=== PATIENT | female | born 1995 | race Caucasian/White ===

== ENCOUNTER 2020-12-30 02:58 | Inpatient (IN) | payer OTHER ==
[2020-12-30] MEDS ORDERED: BUTORPHANOL 1 MG/ML 1 ML VIAL IV PRN (04:30)
[2020-12-30] MEDS ORDERED: LIDOCAINE 0.5% (PF) 5 MG/ML (50 ML SDV) SQ PRN (04:34)
[2020-12-30] MEDS ORDERED: CARBOPROST TROMETHAMINE 250 MCG/ML 1 ML AMP IM PRN (04:34)
[2020-12-30] MEDS ORDERED: OXYTOCIN 10 UNIT/ML 1 ML VIAL IM PRN (04:34)
[2020-12-30] MEDS ORDERED: METHYLERGONOVINE 0.2 MG/ML 1 ML AMP IM PRN (04:34)
[2020-12-30] MEDS ORDERED: TERBUTALINE 1 MG/ML VIAL SQ PRN (04:34)
[2020-12-30] MEDS: LACTATED RINGERS 1,000 ML IV SCH ×2 (05:05→13:00)
[2020-12-30 05:19] LABS: Basophils % (A) 0 %; Eosinophils # (A) 0.2 k/uL (0-0.7); Eosinophils % (A) 3 %; HCT 39.5 % (34.0-46.0); HGB 12.9 gm/dL (11.4-16.0); Lymphocytes # (A) 1.5 k/uL (1.0-4.8); Lymphocytes % (A) 16 %; MCHC 32.6 g/dL (31.0-37.0); Mean Platelet Volume 7.4; Monocytes # (A) 0.3 k/uL (0-1.0); Monocytes % (A) 4 %; Neutrophils % (A) 77 %; Platelet Count 259 k/uL (150-450); RBC 4.44 m/uL (3.80-5.40); RDW 13.1 % (11.5-15.5); WBC 9.2 k/uL (3.8-10.6)
[2020-12-30] MEDS ORDERED: diphenhydrAMINE 50 MG/ML 1 ML VIAL IVP PRN ×2 (13:35)
[2020-12-30] MEDS ORDERED: diphenhydrAMINE 25 MG CAP PO PRN (13:35)
[2020-12-30] MEDS ORDERED: HYDROCORTISONE 2.5% RECTAL CREAM 30 GM TUBE RECTAL PRN (13:35)
[2020-12-30] MEDS ORDERED: LANOLIN CREAM 5 GM TUBE TOPICAL PRN (13:35)
[2020-12-30] MEDS ORDERED: diphenhydrAMINE 50 MG CAP PO PRN (13:35)
[2020-12-30] MEDS ORDERED: ACETAMINOPHEN TAB 325 MG TAB PO PRN (13:35)
[2020-12-30] MEDS ORDERED: SIMETHICONE 80 MG CHEWABLE PO PRN (13:35)
[2020-12-30] MEDS ORDERED: BENZOCAINE/MENTHOL SPRAY 1 GM/SPRAY AEROSOL TOPICAL PRN (13:35)
[2020-12-30] MEDS ORDERED: ZOLPIDEM 5 MG TAB PO PRN (13:35)
--- NOTE | 2020-12-30 13:38 | P.PROBDLV ---
Vaginal Delivery Note - . Vaginal Delivery Note: This is a 25-year-old 1 para 0 at 39-2/7 weeks that presented to labor and delivery with complaints of regular painful contractions early this a.m. Patient had been receiving routine care which has been essentially uncomplicated. Patient was noted to be 4-5 cm upon admission. Patient was admitted to labor and delivery and minimal progress was made approximately 8 AM 3 hours after admission patient was noted to have made 1 cm of change, therefore amniotomy was performed and clear fluid was obtained. Patient progressed through labor eventually becoming complete and began pushing. Patient underwent a normal spontaneous vaginal delivery of a viable female at 1314, weight of 6 lbs. 15 oz. and Apgars of 9 and 9 at one and 5 minutes respectively. Prior to delivery a clitoral laceration was noted therefore a midline episiotomy was preformed after instillation of lidocaine. After two-minute delayed the umbilical cord was doubly clamped and cut and the was handed to the maternal abdomen. The placenta was then delivered spontaneously intact with a three-vessel cord noted. On inspection the patient's vaginal vault the midline laceration was noted to be second-degree in nature. Uterus was noted to be boggy and Methergine was given. Repair of the midline episiotomy was completed with 3-0 Rapide in the usual fashion. The uterus was noted to be firm and below the umbilicus. Estimated blood loss 400 mL. Patient and tolerated delivery well and are resting comfortably. All counts were noted be correct 2 at the end of the delivery.
[2020-12-30] MEDS ORDERED: OXYTOCIN 30 UNITS/500 ML NS 30 UNIT in SALINE 1 500ML.BAG IV SCH (13:45)
[2020-12-30] MEDS: IBUPROFEN 600 MG TAB PO SCH ×3 (13:47→21:38)
--- NOTE | 2020-12-30 17:37 | P.HPOB ---
History of Present Illness H&P Date: 12/30/20 Chief Complaint: IUP @ 39 weeks, active labor This is a 25 yo at 39 weeks that presents to labor and delivery with complaints of regular painful contractions. She states she has been having ant over the last few days and they became regular and painful last dereck branden. she denies LOF/VB, she does note good FM Patient has been receiving routine care with myself which is been essentially uncomplicated. Review of Systems Constitutional: Denies chills, Denies fatigue, Denies fever Ears, nose, mouth and throat: Denies headache Cardiovascular: Reports leg edema Respiratory: Denies dyspnea Gastrointestinal: Denies constipation, Denies diarrhea, Denies nausea, Denies vomiting Genitourinary: Reports Past Medical History Past Medical History: No Reported History History of Any Multi-Drug Resistant Organisms: None Reported Additional Past Surgical History / Comment(s): [place] teeth Past Anesthesia/Blood Transfusion Reactions: No Reported Reaction Past Psychological History: No Psychological Hx Reported Smoking Status: Never smoker Past Drug Use History: None Reported - Past Family History Father Family Medical History: Myocardial Infarction ([place]) Medications and Allergies Home Medications Medication Instructions Recorded Confirmed Type Aspirin [Children's Aspirin] 81 mg PO AC-BID 12/30/20 12/30/20 History Pnv No.95/Ferrous Fum/Folic AC 1 each PO DAILY 12/30/20 12/30/20 History [ Multivitamin Tablet] Allergies Allergy/AdvReac Type Severity Reaction Status Date / Time No Known Allergies Allergy Verified 12/30/20 03:08 Exam Osteopathic Statement: *. No significant issues noted on an osteopathic structural exam other than those noted in the History and Physical/Consult. Vital Signs Temp Pulse Resp BP Pulse Ox 12/30/20 04:40 97.8 F 72 16 125/74 100 12/30/20 04:30 97.8 F 72 16 125/74 100 Intake and Output 12/29/20 12/30/20 12/30/20 22:59 06:59 14:59 Other: # Voids 1 Weight 60.781 kg Targeted physical exam is performed and state in general this a well-nourished well-developed female in no acute distress, breathing is nonlabored, heart is regular rhythm, abdomen is gravid and appropriate for gestational age on cervical exam she is 5/100/-1 station amniotomy is performed and clear fluid was obtained. Category 1 heart tones are appreciated and contractions are irregular. Results Result Diagrams: 12/30/20 05:15 Assessment and Plan (1) Term Current Visit: Yes Status: Acute Code(s): Z34.90 - ENCNTR FOR SUPRVSN OF NORMAL , UNSP, UNSP TRIMESTER SNOMED Code(s): 04842304 (2) Active labor Current Visit: Yes Status: Acute Code(s): FTQ2043 - SNOMED Code(s): 889382645 Plan: 25-year-old at 39 weeks that presents with complaints of regular painful contractions. Patient is admitted options for analgesia are discussed including Stadol and epidural she declines both. Augmentation with Pitocin is discussed if necessary. Patient is agreeable to plan.
[2020-12-30 20:04] VITALS: RESP 16
[2020-12-30] MEDS: SENNOSIDES-DOCUSATE SODIUM 1 EACH TAB PO SCH (21:44)
[2020-12-31] MEDS: IBUPROFEN 600 MG TAB PO SCH ×4 (03:41→20:01)
[2020-12-31 06:37] LABS: Basophils % (A) 0 %; Eosinophils # (A) 0.1 k/uL (0-0.7); Eosinophils % (A) 1 %; HCT 23.7 % (34.0-46.0); Lymphocytes # (A) 1.3 k/uL (1.0-4.8); Lymphocytes % (A) 13 %; MCHC 34.9 g/dL (31.0-37.0); MCV 88.9 fL (80.0-100.0); Mean Platelet Volume 7.5; Monocytes # (A) 0.4 k/uL (0-1.0); Monocytes % (A) 4 %; Neutrophils # (A) 8.3 k/uL (1.3-7.7); Neutrophils % (A) 81 %; Platelet Count 202 k/uL (150-450); RBC 2.66 m/uL (3.80-5.40); RDW 12.5 % (11.5-15.5); WBC 10.2 k/uL (3.8-10.6)
[2020-12-31 06:42] LABS: HGB 8.3 gm/dL (11.4-16.0)
[2020-12-31] MEDS: SENNOSIDES-DOCUSATE SODIUM 1 EACH TAB PO SCH ×2 (08:12→20:02)
--- NOTE | 2020-12-31 08:42 | P.DS ---
Providers Date of admission: 12/30/20 04:37 Expected date of discharge: 12/31/20 Attending physician: Lizbeth Stanley Primary care physician: Stated None - Discharge Diagnosis(es) (1) Term Current Visit: Yes Status: Acute (2) Active labor Current Visit: Yes Status: Acute (3) Status post vaginal delivery Current Visit: Yes Status: Acute (4) Obstetric vaginal laceration with second degree perineal laceration Current Visit: Yes Status: Acute Hospital Course: This is a 25-year-old 1 now para 1 status post normal spontaneous vaginal delivery. Patient was admitted in active labor on 12/30 with regular strong contractions. Patient was noted to be 39-2/7 weeks at that time. Patient was admitted minimal change was made initially therefore amniotomy was performed and clear fluid was obtained. Patient progressed through labor eventually becoming complete and return had a normal spontaneous vaginal delivery of a viable female infant at 1314, weight of 6 lbs. 15 oz. and Apgars of 9 and 9 at one and 5 minutes respectfully. Patient's course has been uneventful. On this day #1 she is ambulating and voiding without difficulty. She is tolerating a regular diet without nausea or vomiting. She states her pain is well-controlled. She would like discharge home at 24 hours if possible. Patient Condition at Discharge: Good Plan - Discharge Summary New Discharge Prescriptions: No Action Pnv No.95/Ferrous Fum/Folic AC [ Multivitamin Tablet] 1 each PO DAILY Aspirin [Children's Aspirin] 81 mg PO AC-BID Discharge Medication List Aspirin [Children's Aspirin] 81 mg PO AC-BID 12/30/20 [History] Pnv No.95/Ferrous Fum/Folic AC [ Multivitamin Tablet] 1 each PO DAILY 12/30/20 [History] Follow up Appointment(s)/Referral(s): Lizbeth Stanley DO [Doctor of Osteopathic Medicine] - 4 Weeks Patient Instructions/Handouts: Vaginal Delivery (DC), Vaginal Delivery (GEN) Discharge Disposition: HOME SELF-CARE
[2021-01-01] MEDS: IBUPROFEN 600 MG TAB PO SCH ×2 (04:20→10:58)
--- NOTE | 2021-01-01 09:29 | P.PNOBGVD ---
Subjective - Subjective Principal diagnosis: day #2 status post normal spontaneous vaginal delivery Interval history: Patient is doing well . She is a billing and voiding without difficulty. Infant did stay an extra day secondary to elevated bilirubin. Awaiting rebound lab on at noon. Patient reports: Reports appetite normal, Reports voiding normally, Reports pain well controlled, Reports ambulating normally : doing well, nursing well Objective - Latest Vital Signs Latest vital signs: Vital Signs Temp Pulse Resp BP Pulse Ox 01/01/21 04:00 97.7 F 91 16 118/70 99 12/31/20 20:00 97.7 F 76 16 122/40 98 12/31/20 16:00 98.8 F 80 16 121/62 Intake and Output 12/31/20 01/01/21 01/01/21 22:59 06:59 14:59 Other: # Voids 2 2 - Exam Extremities: Present: normal, edema Abdomen: Present: normal appearance Uterus: Present: normal, firm Assessment and Plan (1) Term Current Visit: Yes Status: Acute Code(s): Z34.90 - ENCNTR FOR SUPRVSN OF NORMAL , UNSP, UNSP TRIMESTER SNOMED Code(s): 54095215 (2) Active labor Current Visit: Yes Status: Acute Code(s): HIG0559 - SNOMED Code(s): 890932129 (3) Status post vaginal delivery Current Visit: Yes Status: Acute Code(s): YCE2238 - SNOMED Code(s): 026813383 (4) Obstetric vaginal laceration with second degree perineal laceration Current Visit: Yes Status: Acute Code(s): O70.1 - SECOND DEGREE PERINEAL LACERATION DURING DELIVERY SNOMED Code(s): 716233373 Plan: 25-year-old G1 now P1 status post normal spontaneous vaginal delivery, day #2. Doing well. State discharge home later stay.
[2021-01-01 09:36] VITALS: BP 112/64; PULSE 65; TEMP 97.8
[2021-01-01] MEDS: SENNOSIDES-DOCUSATE SODIUM 1 EACH TAB PO SCH (10:58)
== END 2021-01-01 14:09 | disposition home or self-care (01) | DRG 807 ==
LOC: FBPOP 02:58 → 4FBP 04:37
PROVIDERS: ADMIT Obstetrics & Gynecology Obstetrics; ATTEND Obstetrics & Gynecology Obstetrics
PROC: 0W8NXZZ Division of Female Perineum, External Approach (ICD-10-PCS; principal; 2020-12-30)
PROC: 10E0XZZ Delivery of Products of Conception, External Approach (ICD-10-PCS; principal; 2020-12-30)
PROC: 10907ZC Drainage of Amniotic Fluid, Therapeutic from Products of Conception, Via Natural or Artificial Opening (ICD-10-PCS; principal; 2020-12-30)
PROC: 0KQM0ZZ Repair Perineum Muscle, Open Approach (ICD-10-PCS; principal; 2020-12-30)
DX: O70.1 Second degree perineal laceration during delivery (principal); Z37.0 Single live birth; Z3A.39 39 weeks gestation of pregnancy; Z79.82 Long term (current) use of aspirin; Z82.49 Family history of ischemic heart disease and other diseases of the circulatory system
CPT/HCPCS: 59025; 85025; 86850; 86900; 86901; 99213

== ENCOUNTER 2023-02-01 15:17 | Inpatient (IN) | payer OTHER ==
[2023-02-01 16:12] LABS: Basophils % (A) 0 %; Eosinophils # (A) 0.2 k/uL (0-0.7); Eosinophils % (A) 2 %; HCT 37.8 % (34.0-46.0); HGB 13.1 gm/dL (11.4-16.0); Lymphocytes # (A) 1.8 k/uL (1.0-4.8); Lymphocytes % (A) 21 %; MCH 30.3 pg (25.0-35.0); MCHC 34.7 g/dL (31.0-37.0); MCV 87.4 fL (80.0-100.0); Mean Platelet Volume 7.7; Monocytes # (A) 0.3 k/uL (0-1.0); Monocytes % (A) 3 %; Neutrophils % (A) 72 %; Platelet Count 246 k/uL (150-450); RBC 4.33 m/uL (3.80-5.40); RDW 12.4 % (11.5-15.5); WBC 8.3 k/uL (3.8-10.6)
[2023-02-01] MEDS ORDERED: TRANEXAMIC ACID IN NACL,ISO-OS 1,000 MG in EMPTY BAG 1 BAG IV PRN (16:41)
[2023-02-01] MEDS ORDERED: CARBOPROST TROMETHAMINE 250 MCG/ML 1 ML AMP IM PRN (16:41)
[2023-02-01] MEDS ORDERED: TERBUTALINE 1 MG/ML VIAL SQ PRN (16:41)
[2023-02-01] MEDS ORDERED: LIDOCAINE 0.5% (PF) 5 MG/ML (50 ML SDV) SQ PRN (16:41)
[2023-02-01] MEDS ORDERED: OXYTOCIN 10 UNIT/ML 1 ML VIAL IM PRN (16:41)
[2023-02-01] MEDS ORDERED: METHYLERGONOVINE 0.2 MG/ML 1 ML AMP IM PRN (16:41)
[2023-02-01] MEDS ORDERED: miSOPROStoL 200 MCG TAB PO PRN (16:41)
--- NOTE | 2023-02-01 16:41 | P.HPOB ---
History of Present Illness H&P Date: 02/01/23 Chief Complaint: IUP @ 38 weeks, GDM This is a 27 at 38 0/7 weeks that presents from the office after a low baseline is noted. she has noted good FM. She has been receiving routine care which has been complicated by diagnosis of gestational diabetes. She has done well with diet control. Patient did have an ultrasound completed for size greater than dates on 01/18 efw 6-10, 70%ile, ANISA 20. She has been undergoing testing since 32 weeks. Patient denies contractions loss of fluid or vaginal bleeding. On bloodwork this patient's a blood type of A+, rubella status immune, hepatitis B surface and is negative, RPR is nonreactive, B is negative. Review of Systems Constitutional: Denies chills, Denies fatigue, Denies fever Ears, nose, mouth and throat: Denies headache Cardiovascular: Reports leg edema Respiratory: Denies dyspnea Gastrointestinal: Denies constipation, Denies diarrhea, Denies nausea, Denies vomiting Genitourinary: Reports Past Medical History Past Medical History: No Reported History History of Any Multi-Drug Resistant Organisms: None Reported Additional Past Surgical History / Comment(s): [place] teeth Past Anesthesia/Blood Transfusion Reactions: No Reported Reaction Past Psychological History: No Psychological Hx Reported Smoking Status: Never smoker Past Drug Use History: None Reported - Past Family History Father Family Medical History: Myocardial Infarction ([place]) Medications and Allergies Home Medications Medication Instructions Recorded Confirmed Type Aspirin [Children's Aspirin] 81 mg PO AC-BID 12/30/20 12/30/20 History Pnv No.95/Ferrous Fum/Folic AC 1 each PO DAILY 12/30/20 12/30/20 History [ Multivitamin Tablet] Allergies Allergy/AdvReac Type Severity Reaction Status Date / Time No Known Allergies Allergy Verified 12/30/20 03:08 Exam Osteopathic Statement: *. No significant issues noted on an osteopathic structural exam other than those noted in the History and Physical/Consult. 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-developed female in no acute distress, breathing is nonlabored, heart has regular rhythm, abdomen is gravid, on cervical exam she is 1- 2/70/ballotable, heart tones are noted noted category 2 with subtle d ecelerations to the 100s and good return to baseline and moderate variability and accelerations are appreciated Results Result Diagrams: 02/01/23 15:25 Assessment and Plan (1) 38 weeks gestation of Current Visit: Yes Status: Acute Code(s): Z3A.38 - 38 WEEKS GESTATION OF SNOMED Code(s): 87556403 (2) GDM (gestational diabetes mellitus), class A1 Current Visit: Yes Status: Acute Code(s): O24.410 - GESTATIONAL DIABETES MELLITUS IN , DIET CONTROLLED SNOMED Code(s): 03055985 Plan: 27-year-old at 38 weeks of gestation presents from the office after noted low baseline was appreciated. The baseline is noted to be on teens to 120s here with moderate variability and positive accelerations. Subtle decelerations are appreciated throughout down to the 100s with no relation to contractions. Category 2 heart tones are appreciated. Patient is counseled on need for induction of labor secondary to heart tones and gestational diabetes. Patient although frustrated with decision is willing to stay for monitoring overnight. Patient is noted to be ant addition. Should patient not to go into labor on her own overnight and will begin Pitocin augmentation of labor around 4 AM.
[2023-02-01] MEDS ORDERED: OXYTOCIN 30 UNITS/500 ML NS 30 UNIT in SALINE 1 500ML.BAG IV SCH (16:45)
[2023-02-02] MEDS: LACTATED RINGERS 1,000 ML IV SCH ×6 (03:46→21:05)
[2023-02-02] MEDS: PRENATAL VIT-IRON-FOLIC ACID 1 EACH TABLET PO SCH (09:48)
[2023-02-02] MEDS ORDERED: ZOLPIDEM 5 MG TAB PO PRN (14:34)
[2023-02-02] MEDS ORDERED: diphenhydrAMINE 50 MG CAP PO PRN (14:34)
[2023-02-02] MEDS ORDERED: diphenhydrAMINE 50 MG/ML 1 ML VIAL IVP PRN ×2 (14:34)
[2023-02-02] MEDS ORDERED: LANOLIN CREAM 5 GM TUBE TOPICAL PRN (14:34)
[2023-02-02] MEDS ORDERED: HYDROCORTISONE 2.5% RECTAL CREAM 30 GM TUBE RECTAL PRN (14:34)
[2023-02-02] MEDS ORDERED: SIMETHICONE 80 MG CHEWABLE PO PRN (14:34)
[2023-02-02] MEDS ORDERED: BENZOCAINE/MENTHOL SPRAY 1 GM/SPRAY AEROSOL TOPICAL PRN (14:34)
[2023-02-02] MEDS ORDERED: diphenhydrAMINE 25 MG CAP PO PRN (14:34)
--- NOTE | 2023-02-02 14:34 | P.PROBDLV ---
Vaginal Delivery Note - . Vaginal Delivery Note: 19-year-old that presented to labor and delivery from the office yesterday after a low baseline was appreciated. Subtle decelerations were appreciated on the heart tracing but still noted to be category 2. Patient was ant in addition. Patient was admitted overnight for continued monitoring with planned induction of labor if she didn't go into labor overnight. Patient had Pitocin augmentation of labor begun around 4 AM. Patient progressed through labor and mid afternoon underwent amniotomy. Copious clear fluid was appreciated. Patient made good progress towards complete. Patient began pushing once complete. With excellent maternal effort she had a spontaneous vaginal delivery of a viable male infant at 1428, after a two-minute delayed the umbilical cord was doubly clamped and cut The placenta was then delivered spontaneously intact with a three-vessel cord being noted. On inspection the patient's vaginal vault a secondary midline laceration was appreciated. This was instilled lidocaine and repaired the usual fashion with 3-0 Rapide. Hemostasis was appreciated after repair. A rectal exam was performed and noted to be normal in nature. All counts were noted be correct 2 at the delivery. Patient and infant tolerated delivery well and are resting complete.
[2023-02-02] MEDS: IBUPROFEN 600 MG TAB PO SCH ×2 (14:54→21:07)
[2023-02-02] MEDS: ACETAMINOPHEN TAB 325 MG TAB PO PRN (16:55)
[2023-02-02] MEDS: SENNOSIDES-DOCUSATE SODIUM 1 EACH TAB PO SCH (21:07)
[2023-02-03] MEDS: IBUPROFEN 600 MG TAB PO SCH ×2 (04:05→09:27)
[2023-02-03 08:14] VITALS: BP 108/64; PULSE 73; RESP 17; TEMP 97.7
[2023-02-03] MEDS: SENNOSIDES-DOCUSATE SODIUM 1 EACH TAB PO SCH (08:42)
--- NOTE | 2023-02-03 08:57 | P.DS ---
Providers Date of admission: 02/01/23 16:31 Expected date of discharge: 02/03/23 Attending physician: Lizbeth Stanley Primary care physician: Lizbeth Stanley - Discharge Diagnosis(es) (1) 38 weeks gestation of Current Visit: Yes Status: Acute (2) GDM (gestational diabetes mellitus), class A1 Current Visit: Yes Status: Acute (3) Hematoma of labia majora Current Visit: Yes Status: Acute (4) Obstetric vaginal laceration with second degree perineal laceration Current Visit: No Status: Acute (5) Status post vaginal delivery Current Visit: No Status: Acute Hospital Course: this is a 27-year-old G2 now P2 that presented to labor and delivery on 02/01 from the office after a low baseline was appreciated. Patient was noted to be 38 weeks at the time and a known diagnosis of gestational diabetes. Subtle decelerations were appreciated on OB in the triage area. Category 2 heart tones were still noted. Patient was noted to be ant at the time in addition. Patient was counseled on need for induction of labor secondary to category 2 heart tones. Patient agreed to plan of care. Patient wished to watch overnight as long as heart tones were reassuring as she was ant. Patient had contractions that spaced tonight therefore Pitocin augmentation of labor was begun around 4 AM. Patient progressed through labor becoming uncomfortable. Around noon amniotomy was performed and copious clear fluid was noted. Patient made good progress towards complete and began pushing. Patient had a small spontaneous vaginal delivery of a viable male infant at 1408, weight of 7 lbs. 4 oz., Apgars of 9 and 9 at one and 5 minutes respectively. Patient did sustain a secondary midline laceration during delivery. This was instilled with lidocaine and repaired in the usual fashion with 3-0 Rapide. Hemostasis was noted after the delivery. Patient's course has been complicated by a right labial hematoma which has been stable through the night. It appears to be smaller this morning. Patient states discomfort is decreasing. Patient otherwise is feeling well on this day #1. She is ambulating and voiding without difficulty. She is tolerating a regular diet without nausea or vomiting. She states her pain is well-controlled. She denies concerns. She would like discharge home at 24 hours if able Patient Condition at Discharge: Good Plan - Discharge Summary New Discharge Prescriptions: No Action Pnv No.95/Ferrous Fum/Folic AC [ Multivitamin Tablet] 1 each PO DAILY Aspirin [Children's Aspirin] 81 mg PO AC-BID Discharge Medication List Aspirin [Children's Aspirin] 81 mg PO AC-BID 12/30/20 [History] Pnv No.95/Ferrous Fum/Folic AC [ Multivitamin Tablet] 1 each PO DAILY 12/30/20 [History] Follow up Appointment(s)/Referral(s): Lizbeth Stanley DO [Primary Care Provider] - 4 Weeks Patient Instructions/Handouts: Vaginal Delivery (DC), Vaginal Delivery (GEN) Activity/Diet/Wound Care/Special Instructions: bleeding is discussed with patient and questions are answered. Discussion about the labial hematoma and decreasing size is discussed. Patient is counseled on no tub baths or intercourse until 6 weeks . Patient is to call the office for routine check at 4 weeks. Should patient have any concerns regarding her care prior to this appointment she is urged to call the office. Discharge Disposition: HOME SELF-CARE
[2023-02-03] MEDS: PRENATAL VIT-IRON-FOLIC ACID 1 EACH TABLET PO SCH (09:29)
[2023-02-03] MEDS: ACETAMINOPHEN TAB 325 MG TAB PO PRN (14:25)
== END 2023-02-03 14:35 | disposition home or self-care (01) | DRG 560 ==
LOC: FBPOP 15:17 → 4FBP 16:31
PROVIDERS: ADMIT Obstetrics & Gynecology Obstetrics; ATTEND Obstetrics & Gynecology Obstetrics
PROC: 10907ZC Drainage of Amniotic Fluid, Therapeutic from Products of Conception, Via Natural or Artificial Opening (ICD-10-PCS; principal; 2023-02-02)
PROC: 10E0XZZ Delivery of Products of Conception, External Approach (ICD-10-PCS; principal; 2023-02-02)
PROC: 0KQM0ZZ Repair Perineum Muscle, Open Approach (ICD-10-PCS; principal; 2023-02-02)
DX: O24.429 Gestational diabetes mellitus in childbirth, unspecified control (principal); O70.1 Second degree perineal laceration during delivery; O36.8330 Maternal care for abnormalities of the fetal heart rate or rhythm, third trimester, not applicable or unspecified; Z3A.38 38 weeks gestation of pregnancy; Z37.0 Single live birth; Z79.82 Long term (current) use of aspirin; Z28.310 Unvaccinated for COVID-19; Z28.21 Immunization not carried out because of patient refusal
CPT/HCPCS: 59025; 85025; 86850; 86900; 86901; 88307; 99213